=== PATIENT | male | born 1970 | race Caucasian/White ===

== ENCOUNTER → 2017-07-10 | Outpatient (CLI) | payer OTHER ==
[~2017-07-10] MED LIST: GADOBUTROL 10 MMOL/10 ML VIAL IV ONE
--- NOTE | 2017-07-10 16:52 | KCIC ---
MRI cervical spine with and without contrast July 10, 2017 INDICATION: Neck pain and bilateral upper extremity numbness since December 2016. COMPARISON: None available TECHNIQUE: Multiplanar, multisequence MR imaging of the cervical spine is performed before and after the administration of intravenous contrast. 9 cc gadolinium based contrast was administered intravenously. FINDINGS: There is minimal retrolisthesis of C6 on C7. Modic type I endplate degenerative changes are identified at C6-C7 with disc height loss and mild endplate edema. Anterior marginal osteophytosis is present most prominent at C5-C6 and C6-C7. Skull base is intact. Posterior fossa is normal in appearance. Vertebral artery flow voids are patent. There is no prevertebral soft tissue swelling. No ligamentous abnormality is identified. Soft tissues are normal in appearance. C2-C3: There is minimal posterior discussed by complex. There is mild left facet arthropathy. Mild left uncovertebral joint arthropathy. Mild left neuroforaminal stenosis. No spinal canal stenosis. C3-C4: There is a posterior disc osteophyte complex with central disc protrusion. There is mild facet arthropathy. Mild uncovertebral joint arthropathy. Moderate left and mild right neuroforaminal stenosis. There is mild to moderate spinal canal stenosis. C4-C5: There is a posterior disc osteophyte complex. There is moderate right and mild left facet arthropathy. Mild uncovertebral joint arthropathy. No significant neuroforaminal stenosis. There is mild spinal canal stenosis. C5-C6: There is a posterior disc osteophyte complex asymmetric to the left, indenting the left ventral cord. There is moderate facet arthropathy. Moderate uncovertebral joint arthropathy. Severe left and mild right neuroforaminal stenosis. There is mild to moderate spinal canal stenosis. C6-C7: There is a moderate posterior disc osteophyte complex. There is mild facet arthropathy. Moderate uncovertebral joint disease. Moderate to severe bilateral neuroforaminal stenosis. Mild spinal canal stenosis. C7-T1: There is minimal disc osteophyte complex. Moderate right and mild left facet arthropathy. Mild uncovertebral joint arthropathy. No neuroforaminal or spinal canal stenosis. IMPRESSION: 1. Mild to moderate degenerative changes of the cervical spine with Modic type I endplate degenerative changes at C6-C7. 2. There is a posterior disc osteophyte complex asymmetric to the left at C5-C6 with moderate facet arthropathy and uncovertebral joint disease resulting in severe left neuroforaminal stenosis and mild to moderate spinal canal stenosis. 3. There is a moderate posterior disc osteophyte complex at C6-C7 with mild facet arthropathy and moderate uncovertebral joint disease resulting in moderate to severe bilateral neural foraminal stenosis and mild spinal canal stenosis. Electronically signed by: Keri Mayer MD (07/10/2017 4:49 PM) [id number]
== END | disposition home or self-care (01) ==
LOC: KCIC MRI 15:25
PROVIDERS: ATTEND Physical Medicine & Rehabilitation Pain Medicine
DX: M25.78 Osteophyte, vertebrae (principal)
CPT/HCPCS: 72156; A9585